=== PATIENT | male | born 1955 | race Caucasian/White ===

== ENCOUNTER 2021-06-27 07:42 | Day surgery (SDC) | payer MEDICARE, OTHER, SELFPAY ==
[2021-06-27] VITALS (7 sets, daily range): BP systolic 92–135; BP diastolic 55–76; PULSE 54–60; RESP 12–18; TEMP 36.4–36.6; O2SAT 95–100; BMI 25.0
--- NOTE | 2021-06-27 | PATH_ITS ---
[facility] Accession Number: [id number] No. of containers..02 Tissue . 01 Material submitted: . PART A: colon - TRANSVERSE COLON POLYP PART B: colon - SIGMOID COLON POLYPS X2 . 02 Diagnosis: A. Transverse Colon Polyp: Superficial portion of colorectal mucosa x1 with a benign lymphoid aggregate. Portion of acellular debris x1. . B. Sigmoid Colon Polyps x2: Tubular/tubulovillous adenoma. MRV 06/29/2021 1047 Local . 02 Electronically signed: . Miriam Lei MD, Pathologist NPI- [id number] . 01 Gross description: . Part A: TRANSVERSE COLON POLYP: Received in formalin are 2 fragment(s) of pillai, soft tissue measuring 1.1 x 0.2 x 0.1 cm to 0.3 x 0.2 x 0.2 cm submitted entirely in 1 cassette(s) Part B: SIGMOID COLON POLYPS X2: Received in formalin is 1 fragment(s) of pillai, soft tissue measuring 0.3 x 0.1 x 0.1 cm submitted entirely in 1 cassette(s) /CPE 06/28/2021 1611 Local . 02 Pathologist provided ICD-10: K63.5 . 02 CPT . 938828, [id number] Specimen Comment: A courtesy copy of this report has been sent to [phone] Performed at: 01 [facility] [address], [place], [place] [id number] MD Lucas Ascencio MD Phone: [phone] Performed at: 02 [facility] [address] [place], [place] [id number] MD Zayda Rodriguez MD Phone: [phone]
[2021-06-27] MEDS: SODIUM CHLORIDE 0.9% 1,000 ML 70 ML IV (08:55)
--- NOTE | 2021-06-27 09:14 | P.HP_ITS ---
History of Present Illness History of Present Illness Date Patient Seen: 06/27/21 Time Patient Seen: 09:14 Chief complaint: DX COLONOSCOPY Narrative: Patient is a very pleasant 66-year-old male who presented for colonoscopy. He does have a personal history colon polyps. He believes his last colonoscopy was 7 years ago. He states he also had a colonoscopy at age 49 which was unremarkable. He denies diarrhea or constipation or the bases. Denies rectal bleeding. Denies family history of colon cancer or colon polyps. Patient History Medical History Cataracts, bilateral Colonoscopy planned Hypertension Family & Social History Social History: household members significant other Tobacco & Substance use: Smoking Status Never smoker alcohol intake current alcohol intake frequency a few times a week Substance Use Type does not use Meds Home Medications and Allergies Home Medications Medication Instructions Recorded Confirmed Type lisinopril 10 mg PO DAILY 06/27/21 06/27/21 History Allergies Allergy/AdvReac Type Severity Reaction Status Date / Time No Known Drug Allergies Allergy Verified 06/27/21 08:47 Review of Systems Review of Systems ROS: Yes All systems reviewed with the patient and are negative except as otherwise documented Exam Vital Signs (past 8 hours): - 06/27/21 08:48 Temperature 97.9 F Pulse Rate 59 L Respiratory Rate 16 Blood Pressure 135/76 Pulse Oximetry 98 Oxygen Delivery Method Room Air Const General: cooperative, healthy appearing, comfortable, well developed, well groomed and No acute distress Nutritional Appearance: average body habitus and well nourished [facility] Head: normocephalic and atraumatic Resp Effort & Inspection: normal respiratory effort, able to speak in complete sentences, normal respiratory pattern and no audible wheezes Auscultation: clear to auscultation bilaterally Cardio Rate: regular rate Rhythm: regular rhythm GI Palpation: soft and No guarding Extrem General: no pedal edema Assessment & Plan Assessment & Plan narrative: 1. History of colon polyps Colonoscopy today, further recommendations to follow Time Spent With Patient Critical Care time: I spent a total of [] minutes of critical care time on this patient's care today; this time is exclusive of procedural time.
--- NOTE | 2021-06-27 09:44 | PM.OP.COLON ---
Operative Date/Time/Diagnoses Date of procedure: 06/27/21 Time of procedure: 09:20 Procedure Notes Procedure in detail: Surgeon: Risa Aguayo DO Procedure: Colonoscopy with polypectomy Preoperative diagnosis: Personal history colon polyps Postoperative diagnosis: 6 mm polyp in the transverse colon with cold snare 4-5 mm polyps removed in the sigmoid colon with cold snare Sigmoid and descending colon diverticulosis Normal-appearing terminal ileum Grade 1 internal hemorrhoids noted on retroflexion Medications: Monitored anesthesia care, see Anesthesia note Preanesthesia Assessment An H and P was performed/updated and the Px?s ASA class is 2. The procedure was discussed in detail with the patient. The potential risks and complications including infection, bleeding, missed lesions, perforation, need for surgery in case of perforation, prolonged hospital stay, and were explained. A brief question and answer period was allotted and once all questions were answered, informed consent was obtained. The patient was brought back to the procedure room and placed on standard monitoring. The patient?s vital signs were monitored continuously throughout the entire procedure. Prior to starting, a timeout was performed to confirm the patient?s identity, allergies, medications, and procedure. Procedure in detail The patient was placed in left lateral decubitus position and once adequate sedation was obtained a SUKHDEEP was performed. The digital rectal examination did not reveal any palpable lesions. The tip of the colonoscope was placed in the anal canal and advanced without difficulty all the way to the terminal ileum which appeared unremarkable The cecum which was identified by the appendiceal orifice and the ileocecal valve. Careful examination of all goldman of the colon was performed with irrigation of any residual stool. 6 mm polyp in the transverse colon, removed cold snare. Two polyps measuring 4 and 5 mm removed sigmoid colon with cold snare. Sigmoid and descending colon diverticulosis. Grade 1 internal hemorrhoids were noted on retroflexion. The patient tolerated the procedure well and will be brought back to the recovery area to be discharged once criteria are met. The prep was judged to be good/excellent and adequate to identify polyps less than 5 mm. The withdrawal time was 13 minutes. Complications There were no complications and estimated blood loss was minimal. Recommendations: Resume previous diet Continue outPx medications Follow up pathology results Repeat colonoscopy will be determined after pathology results are reviewed An emergency contact number was given to the patient for any complications related to the procedure
== END 2021-06-27 10:27 | disposition home or self-care (01) ==
PROVIDERS: Referring Provider Student in an Organized Health Care Education/Training Program; Visit Provider Student in an Organized Health Care Education/Training Program
PROC: 0DJD8ZZ Inspection of Lower Intestinal Tract, Via Natural or Artificial Opening Endoscopic (ICD-10-PCS; CPT 45378; principal; 2021-06-27 09:30)
DX: Z12.11 Encounter for screening for malignant neoplasm of colon (principal); Z86.010 Personal history of colon polyps; K64.0 First degree hemorrhoids; I10 Essential (primary) hypertension; K57.30 Diverticulosis of large intestine without perforation or abscess without bleeding; D12.5 Benign neoplasm of sigmoid colon
CPT/HCPCS: 45385; J2704